=== PATIENT | male | born 1945 | race African-American/Black ===

== ENCOUNTER → 2017-09-12 | Day surgery (SDC) | payer OTHER, MEDICARE ==
[~2017-09-12] MED LIST: CEFTRIAXONE SOD 1 GM VIAL ONE; DEXAMETHASONE SOD PHOS INJ 4 MG/ML VIAL ONE; EPHEDRINE SULFATE INJ 50 MG/10 ML SYR ONE; FENTANYL CITRATE/PF 100MCG/2 ML INJ ONE; GABAPENTIN600 MG PO; GENTAMICIN 80MG/NS 100 ML 200 ML IV ONE; IOPAMIDOL 610MG/1ML 300 MG/ML VIAL IV ONE; LIDOCAINE HCL 2% LOCAL INJ 5 ML SDV VIAL INJ ONE; LOSARTAN POTASS50 MG PO; METFORMIN HCL500 MG PO; MIDAZOLAM HCL 2 MG/2 ML VIAL ONE; ONDANSETRON HCL INJ 2 MG/ML VIAL ONE; PROPOFOL IV EMULSION 10 MG/ML 20 ML VIAL ONE; SEVOFLURANE INHAL SOLN 250 ML PEN BTL ONE; SIMVASTATIN40 MG PO
--- OUTSIDE RECORDS SUMMARY | 2017-09-12 07:54 | XMS REPORT | Clinical Summary ---
Author Author [facility] Address Unknown Phone Unavailable Care Team Providers Care Production Repairer Name Role Phone Amrik Betancourt MD PCP Allergies No Known Allergies Current Medications Prescription Sig. Disp. Refills Start End Date Status Date gabapentin (NEURONTIN) TK 1 T PO TID 0 12/06/19 Active 600 MG tablet 16 simvastatin (ZOCOR) 40 MG 0 11/16/19 Active tablet 16 losartan-hydrochlorothiaz Take 1 tablet by mouth 0 05/07/20 Active garcia (HYZAAR) 50-12.5 mg daily. 17 per tablet metFORMIN (GLUCOPHAGE) TK 1/2 T PO ONCE D WITH 0 04/15/20 Active 500 mg tablet MEALS 17 losartan-hydrochlorothiaz TK 1 T PO D 0 12/07/19 08/02/19 Discontin garcia (HYZAAR) 100-12.5 mg 16 18 ued per tablet sodium,potassium,mag Please use as directed 2 Bottle 0 07/17/19 Discontin sulfates (SUPREP BOWEL 18 18 ued PREP KIT) 17.5-3.13-1.6 gram recon soln Active Problems No known active problems Encounters Date Type Specialty Care Team Description 08/02/2017 Hospital Gastroenterology Warren Ravi MD History of colon polyps Encounter 08/02/2017 Procedure Pass Gastroenterology 08/02/2017 Surgery Gastroenterology Warren Ravi MD COLONOSCOPY with bx 08/01/2017 Anesthesia Gastroenterology Bhaskar Ramos Event MD 07/17/2017 Office Visit Gastroenterology Warren Ravi MD History of colon polyps (Primary Dx); Diverticulosis of large intestine without hemorrhage 04/02/2017 Hospital Radiology Brian Betancourt Numbness and tingling Encounter MD Amrik 03/22/2017 Procedure Pass Radiology 03/21/2017 Transcribe Access Abdelsayed, Dallal Numbness and tingling Orders MD Amrik (Primary Dx) after 09/11/2016 Family History Medical History Relation Name Comments No Known Problems Father Heart disease Mother Heart disease Sister Relation Name Status Comments Father Mother Sister Social History Tobacco Use Types Packs/Day Years Used Date Never Smoker Smokeless Tobacco: Never Used Alcohol Use Drinks/Week oz/Week Comments Yes rarely Sex Assigned at Date Recorded Not on file Last Filed Vital Signs Vital Sign Reading Time Taken Blood Pressure 144/78 08/02/2017 8:20 AM CDT Pulse 55 08/02/2017 8:20 AM CDT Temperature 36.5 C (97.7 F) 08/02/2017 7:50 AM CDT Respiratory Rate 17 08/02/2017 8:20 AM CDT Oxygen Saturation 99% 08/02/2017 8:20 AM CDT Inhaled Oxygen - - Concentration Weight 103 kg (227 lb) 08/02/2017 6:46 AM CDT Height 185.4 cm (6' 1") 08/02/2017 6:46 AM CDT Body Mass Index 29.95 08/02/2017 6:46 AM CDT Plan of Treatment Health Maintenance Due Date Last Done Comments COLONOSCOPY 08/11/1997 SHINGRIX VACCINE (#1) 08/11/1997 ZOSTER VACCINE 2007 PNEUMOCOCCAL 08/11/2012 POLYSACCHARIDE VACCINE AGE 65 AND OVER PNEUMOCOCCAL-13 08/11/2012 INFLUENZA VACCINE 12/19/2017 Procedures Procedure Name Priority Date/Time Associated Diagnosis Comments COLONOSCOPY with bx 08/02/2017 History of colon polyps 7:30 AM CDT after 09/11/2016 Results * Surgical pathology request (08/02/2017 9:00 AM) Component Value Ref Range Surgical pathology report See link below for PDF Lab Report Result status This is Final Report to [id number] Specimen Performing Laboratory [facility] [place] [facility] [address] [place] [address] * POC glucose (08/02/2017 6:54 AM) Component Value Ref Range POC glucose 97 65 - 100 mg/dL Comment: Meter ID: [id number] [employer] Blind Machine Operator: Mitra Marks Specimen Performing Laboratory [facility] [place] [facility] [address] [place] [address] * MRI Brain Wo Contrast (04/02/2017 8:29 AM) Specimen Performing Laboratory [facility] [address] [place] [address] Narrative EXAMINATION:MRI BRAIN WO CONTRAST CLINICAL HISTORY:R20.0 Anesthesia of skin, R20.2 Paresthesia of skin, leg numbness COMPARISON:May 02, 2004 Findings: No intracranial hemorrhage, acute ischemia, extra-axial fluid collections or parenchymal mass lesions. No hydrocephalus. No suspicious focal bone marrow lesions. Mild chronic ischemic small vessel white matter changes. Incidental small meningioma along the right frontoparietal operculum measures 2.3 x 1 cm with minimal local mass effect. No midline shift. Major flow voids are maintained. Mild mucosal inflammatory changes in the inferior left greater than right maxillary sinuses. IMPRESSION: No acute intracranial abnormalities or mass lesions. Incidental small right frontoparietal operculum meningioma without significant mass effect. [id number] Procedure Note Interface, Radiology Results Incoming - 04/02/2017 8:42 AM SUPERVISOR HOT DIP TINNING EXAMINATION: MRI BRAIN WO CONTRAST CLINICAL HISTORY: R20.0 Anesthesia of skin, R20.2 Paresthesia of skin, leg numbness COMPARISON: May 02, 2004 Findings: No intracranial hemorrhage, acute ischemia, extra-axial fluid collections or parenchymal mass lesions. No hydrocephalus. No suspicious focal bone marrow lesions. Mild chronic ischemic small vessel white matter changes. Incidental small meningioma along the right frontoparietal operculum measures 2.3 x 1 cm with minimal local mass effect. No midline shift. Major flow voids are maintained. Mild mucosal inflammatory changes in the inferior left greater than right maxillary sinuses. IMPRESSION: No acute intracranial abnormalities or mass lesions. Incidental small right frontoparietal operculum meningioma without significant mass effect. [id number] after 09/11/2016 Insurance Payer Benefit Subscriber ID Type Phone Address Plan / Group CIGNA CIGNA xxxxxxxxxxx HMO HMO/POS CIGNA CIGNA PPO xxxxxxxxxxx PPO [facility] MEDICARE AARP xxxxxxxxx HMO MEDICARE COMPLETE [facility]
--- NOTE | 2017-09-12 11:09 | Diagnostic Imaging Report ---
PROCEDURE: Frontal and lateral views of the chest. COMPARISON: None. INDICATIONS: PRE OPERATIVE CHEST X-RAY FOR PROSTATE SURGERY FINDINGS: Lines/tubes: None. Lungs: The lungs are well inflated and clear. There is no evidence of pneumonia or pulmonary edema. Pleura: There is no pleural effusion or pneumothorax. Heart and mediastinum: The heart and the mediastinum are normal. Bones: No acute bony abnormality. IMPRESSION: No acute radiographic abnormality. Dictated by: Woo Desai M.D. on 09/12/2017 at 11:10 Electronically approved by: Woo Desai M.D. on 09/12/2017 at 11:10
--- NOTE | 2017-09-12 13:00 | Operative Report ---
DATE OF PROCEDURE: September 12, 2017 PREOPERATIVE DIAGNOSES 1. Benign prostatic hyperplasia. 2. Rule out carcinoma of the prostate. 3. Abnormal prostate-specific antigen. 4. Renal insufficiency. 5. Serum creatinine 2.9. POSTOPERATIVE DIAGNOSES 1. Benign prostatic hyperplasia. 2. Rule out carcinoma of the prostate. 3. Abnormal prostate-specific antigen. 4. Renal insufficiency. 5. Serum creatinine 2.9. OPERATIONS 1. Transrectal ultrasound of the prostate. 2. Transrectal ultrasound-guided needle biopsies. 3. Cystoscopy and bilateral retrograde pyelogram. BAND SINGER: Dr. Martinez Jasso. ANESTHESIA: General. PROCEDURE IN DETAIL: Mr. Valdez is a 72-year-old male who presented with a chief complaint of lower urinary tract obstructive symptoms. Rectal exam showed an enlarged prostate gland. PSA was 4.68. This patient was placed on the table in the lithotomy position, was prepped and draped. Transrectal ultrasound of the prostate was performed and the prostate measured 3.46 x 2.60 x 4.03 with a total volume of 19.01. He had hypoechoic area on the left base that measured 17 x 30 mm. A transrectal ultrasound-guided needle biopsies were obtained from the hypoechoic area and also from the normal-appearing prostate to map it for any multifocal carcinoma. This patient was then prepped and draped in a sterile manner. A #23 Tuvaluan cystoscope was used and cystourethroscopy was performed and it was noted that the urethra was normal. A prostatic urethra was about 4 cm long, bilobar and occlusive. Cystoscopy was then performed using both right angle and the Foroblique lens and it was noted that the bladder mucosa was normal with no evidence of bladder tumor. Both urethral orifices were seen and were within normal position, configuration, and efflux. The bladder wall was moderately trabeculated. Left retrogram was then performed using a #8 ball-tip urethral catheter inserted at the left urethral orifice and 5 mL of contrast material was injected, the retrograde performed was normal. Right retrograde pyelogram was performed similarly and was normal. The bladder was drained, cystoscope removed and patient taken to the recovery room in satisfactory condition. Plans for this patient: He is to be placed on Levaquin 500 mg once a day for one week. Ultracet tablet one every 6 to 8 hours p.r.n. and was given 20. He is to return to the office in two weeks. XANDER: 09/12/2017 10:49 Job#: [id number] ISA
== END | disposition home or self-care (01) ==
LOC: OR 07:51
PROVIDERS: ATTEND Specialist
PROC: 0VB07ZX Excision of Prostate, Via Natural or Artificial Opening, Diagnostic (ICD-10-PCS; principal; 2017-09-12 10:00)
PROC: BT14ZZZ Fluoroscopy of Kidneys, Ureters and Bladder (ICD-10-PCS; 2017-09-12 10:00)
DX: N40.1 Benign prostatic hyperplasia with lower urinary tract symptoms (principal); N13.8 Other obstructive and reflux uropathy; R97.20 Elevated prostate specific antigen [PSA]; N28.9 Disorder of kidney and ureter, unspecified; E11.9 Type 2 diabetes mellitus without complications; I10 Essential (primary) hypertension; E78.5 Hyperlipidemia, unspecified; Z01.810 Encounter for preprocedural cardiovascular examination
CPT/HCPCS: 36415; 52005; 55700; 71046; 74420; 76872; 76942; 82948; 88305; 93005; C1758; J0696; J1100; J1580; J2001; J2250; J2405; Q9967

== ENCOUNTER → 2017-10-17 | Day surgery (SDC) | payer OTHER, MEDICARE ==
[2017-10-11 13:00] LABS: BASOPHILS % 0.5 % (0.0-1.0); EOSINOPHILS # (AUTO) 0.2 (0.0-0.4); EOSINOPHILS % 2.6 % (0.0-6.0); HEMATOCRIT 35.6 % (38.2-49.6); HEMOGLOBIN 11.9 g/dL (14.0-18.0); LYMPHOCYTES % 33.6 % (18.0-39.1); MEAN CORPUSCULAR HEMOGLOBIN 30.8 pg (28-32); MEAN CORPUSCULAR HGB CONC 33.4 g/dL (31-35); MEAN CORPUSCULAR VOLUME 92.2 fL (81-99); MONOCYTES # (AUTO) 0.4 (0.2-0.8); MONOCYTES % 6.5 % (4.4-11.3); NEUTROPHILS # (AUTO) 3.4 (2.1-6.9); NEUTROPHILS % 56.6 % (38.7-80.0); PLATELET COUNT 202 x10e3/uL (140-360); RED BLOOD COUNT 3.86 x10e6/uL (4.3-5.7); RED CELL DISTRIBUTION WIDTH 13.1 % (11.7-14.4)
[2017-10-11 13:18] LABS: ANION GAP 15.4 mmol/L (8-16); CALCIUM 9.6 mg/dL (8.4-10.2); CREATININE, SERUM 1.98 mg/dL (0.72-1.25); POTASSIUM 4.4 mmol/L (3.5-5.1)
[~2017-10-17] MED LIST changes: -CEFTRIAXONE SOD 1 GM VIAL ONE; -GENTAMICIN 80MG/NS 100 ML 200 ML IV ONE; +HYOSCYAMINE 0.125 MG TAB PO ONE; -IOPAMIDOL 610MG/1ML 300 MG/ML VIAL IV ONE; +LEVOFLOXACIN 500MG/D5W 100ML 100 ML IV ONE
--- OUTSIDE RECORDS SUMMARY | 2017-10-17 09:26 | XMS REPORT ---
Author Author [facility] Address Unknown Phone Unavailable Care Team Providers Care Gis Application Developer Name Role Phone ANASTASIYA SALDIVAR Unavailable Unavailable Problems This patient has no known problems. Allergies, Adverse Reactions, Alerts This patient has no known allergies or adverse reactions. Medications This patient has no known medications. Results Test Description Test Time Test Comments Text Results Atomic Results Result Comments CHEST 2 VIEWS [place] [address] Patient Name: CHELSEA STOREY SR MR #: [id number] : 1945 Age/Sex: 72/M Req #: [id number] [facility] Physician: Ordered by: ANASTASIYA SALDIVAR MD Report #: [id number] Location: OR Room/Bed: Procedure: [id number] DX/CHEST 2 VIEWS Exam Date: 09/12/17 Exam Time: 0750 REPORT STATUS: Signed PROCEDURE: Frontal and lateral views of the chest. COMPARISON: None. INDICATIONS: PRE OPERATIVE CHEST X-RAY FOR PROSTATE SURGERY FINDINGS: Lines/tubes: None. Lungs: The lungs are well inflated and clear. There is no evidence of pneumonia or pulmonary edema. Pleura: There is no pleural effusion or pneumothorax. Heart and mediastinum: The heart and the mediastinum are normal. Bones: No acute bony abnormality. IMPRESSION: No acute radiographic abnormality. Dictated by: Petra Bianchi M.D. on 09/12 at 11:10 Electronically approved by: Petra Bianchi M.D. on 2017 at 11:10 Dictated By: PETRA BIANCHI MD 1110 Transcribed By: ROSIBEL on 09/12/17 1110 COPY TO: ANASTASIYA SALDIVAR MD
--- OUTSIDE RECORDS SUMMARY | 2017-10-17 09:26 | XMS REPORT | Clinical Summary ---
Author Author [facility] Organization [facility] Address Unknown Phone Unavailable Care Team Providers Care Shoulder Joiner Name Role Phone Amrik Betancourt MD PCP [...] tingling Orders MD Amrik (Primary Dx) after 10/16/2016 Family History Medical History Relation Name Comments [...] Health Maintenance Due Date Last Done Comments COLON CANCER SCREENING 08/11/1997 SHINGRIX VACCINE (#1) 08/11/1997 ZOSTER VACCINE 2007 PNEUMOCOCCAL 08/11/2012 POLYSACCHARIDE VACCINE AGE 65 AND OVER PNEUMOCOCCAL-13 08/11/2012 INFLUENZA VACCINE 12/19/2017 Procedures Procedure Name Priority Date/Time Associated Diagnosis Comments COLONOSCOPY with bx 08/02/2017 History of colon polyps 7:30 AM CDT after 10/16/2016 Results * Surgical pathology request (08/02/2017 9:00 AM) Component Value Ref Range Surgical pathology report See link below for PDF Lab Report Result status This is Final Report to [id number] Specimen Performing Laboratory [facility] [place] DEPARTMENT OF PATHOLOGY AND GENOMIC MEDICINE [address] [place] [address] * POC glucose (08/02/2017 6:54 AM) Component Value Ref Range POC glucose 97 65 - 100 mg/dL Comment: Meter ID: [id number] [employer] Former: Mitra Marks Specimen Performing Laboratory [facility] [place] DEPARTMENT OF PATHOLOGY AND GENOMIC MEDICINE [address] [address] * MRI Brain Wo Contrast (04/02/2017 8:29 AM) Specimen Performing Laboratory [facility] [address] [facility] [place] [address] Narrative EXAMINATION:MRI BRAIN WO CONTRAST CLINICAL HISTORY:R20.0 [...] frontoparietal operculum meningioma without significant mass effect. [id number] Procedure Note Interface, Radiology Results Incoming - 04/02/2017 8:42 AM VASCULAR ULTRASOUND TECHNICIAN EXAMINATION: MRI BRAIN WO CONTRAST CLINICAL HISTORY: [...] frontoparietal operculum meningioma without significant mass effect. [id number] after 10/16/2016 Insurance Payer Benefit Subscriber ID Type Phone Address Plan / Group CIGNA CIGNA xxxxxxxxxxx HMO HMO/POS CIGNA CIGNA PPO xxxxxxxxxxx O [facility] MEDICARE AARP xxxxxxxxx HMO MEDICARE COMPLETE [facility]
--- NOTE | 2017-10-17 13:23 | Operative Report ---
DATE OF PROCEDURE: October 17, 2017 PREOPERATIVE DIAGNOSES 1. BPH. 2. Prostatic hypertrophy. POSTOPERATIVE DIAGNOSES 1. BPH. 2. Prostatic hypertrophy. OPERATION 1. Cystourethroscopy. 2. Transurethral resection of prostate laser XPS. BATCH TESTER: Dr. Martinez Jasso. ANESTHETIC: General. Mr. Valdez is a 72-year-old male who presented with a chief complaint of lower urinary tract obstructive symptoms. Rectal exam showed an enlarged prostate gland about 60 grams, smooth, firm and benign. He underwent cystourethroscopy which showed an enlarged occlusive prostate gland, with a moderately to markedly trabeculated bladder. This patient was placed on the table in the lithotomy position and was prepped and draped in a sterile manner after satisfactory anesthesia. A number 23-Croatian cystoresectoscope was used and cystourethroscopy is performed and confirmed the previous cystoscopic findings. The XPS laser scope generator was then started, starting at 120 lange vaporization level and 40 lange coagulation level. Vaporization of the prostate was then started, starting from 11 to 7 o'clock, starting at the bladder neck to just proximal to the verumontanum and down to the capsular fibers. Hemostasis was obtained all through and was very adequate. Vaporization was then started from 1 to 5 o'clock again starting at the bladder neck which is proximal to the verumontanum and down to the capsular fibers. Finally the floor of the prostatic muscle was then vaporized. Again, hemostasis was very adequate. At the termination of the procedure it was noted that the bladder mucosa, both ureteral orifices and the external sphincter were intact without laser energy damage. The laser scope generator was shut down, the cystoresectoscope was removed and a number 22 Croatian Oliva catheter was placed. Estimated blood loss was 0 mL. Plans for this patient is to go home with the Oliva catheter and is to return tomorrow to the office for the catheter removal. DISCHARGE MEDICATIONS 1. Cipro 500 mg one twice a day for 1 week. 2. Ultracet tablet one every 6 hours p.r.n. and was given #30. He was instructed to have free liquids. Job#: [id number] ISA
== END | disposition home or self-care (01) ==
LOC: OR 09:23
PROVIDERS: ATTEND Specialist
DX: N40.1 Benign prostatic hyperplasia with lower urinary tract symptoms (principal); N13.8 Other obstructive and reflux uropathy; N32.89 Other specified disorders of bladder; I10 Essential (primary) hypertension; Z01.812 Encounter for preprocedural laboratory examination; Z79.84 Long term (current) use of oral hypoglycemic drugs
CPT/HCPCS: 36415 ×2; 52648; 80048; 82948; 85025; J1100; J1956; J2001; J2250; J2405

== ENCOUNTER 2024-01-09 10:02 | Emergency (ER) | payer MEDICARE, OTHER ==
[~2024-01-09] VITALS: Ht 185.4 cm; Wt 95.3 kg
[~2024-01-09 10:02] MED LIST changes: -DEXAMETHASONE SOD PHOS INJ 4 MG/ML VIAL ONE; -EPHEDRINE SULFATE INJ 50 MG/10 ML SYR ONE; -FENTANYL CITRATE/PF 100MCG/2 ML INJ ONE; -HYOSCYAMINE 0.125 MG TAB PO ONE; -LEVOFLOXACIN 500MG/D5W 100ML 100 ML IV ONE; -LIDOCAINE HCL 2% LOCAL INJ 5 ML SDV VIAL INJ ONE; -MIDAZOLAM HCL 2 MG/2 ML VIAL ONE; -ONDANSETRON HCL INJ 2 MG/ML VIAL ONE; -PROPOFOL IV EMULSION 10 MG/ML 20 ML VIAL ONE; -SEVOFLURANE INHAL SOLN 250 ML PEN BTL ONE
[2024-01-09 10:24] VITALS: PULSE 76; RESP 16; TEMP 98.4; O2SAT 100
[2024-01-09] MEDS ORDERED: METHOCARBAMOL750 MG PO (10:32)
== END 2024-01-09 10:38 | disposition home or self-care (01) ==
LOC: ER 10:08
DX: M54.42 Lumbago with sciatica, left side (principal); I10 Essential (primary) hypertension; E11.9 Type 2 diabetes mellitus without complications; E78.5 Hyperlipidemia, unspecified; G89.29 Other chronic pain
CPT/HCPCS: 99282